=== PATIENT | male | born 1945 | race Caucasian/White ===

== ENCOUNTER → 2018-12-03 | Outpatient (CLI) | payer MEDICARE ==
[~2018-12-03] MED LIST: AMLODIPINE BESY10 MG PO; ASPIRIN325 M2 PO; ASPIRIN81 M1 PO; B COMPLEX1 EACH PO; BUPROPION HCL100 M2 PO; BUSPIRONE HCL10 MG PO; BUSPIRONE10 MG PO; DOCUSATE SOD100 MG PO; EFFEXOR XR37.5 MG PO; FINASTERIDE5 M1 PO; FISH OIL 1,0001 EAC2 PO; HYDROCODONE-AC1 EAC1 PO; LIPITOR20 MG PO; Lovenox40 MG/0.4 SC; OMEPRAZOLE20 M2 PO; TAMSULOSIN HCL0.4 MG PO; TRAZODONE100 MG PO; VITAMIN B-121000 MC2 PO; VITAMIN C1000 M5 PO; VITAMIN D31000 UNI1 PO
== END | disposition home or self-care (01) ==
LOC: ORTHO 01:16
DX: Z47.1 Aftercare following joint replacement surgery (principal)

== ENCOUNTER → 2019-01-31 | Outpatient (CLI) | payer MEDICARE | END | disposition home or self-care (01) | LOC: ORTHO 02:44 | DX: S72.141D Displaced intertrochanteric fracture of right femur, subsequent encounter for closed fracture with routine healing (principal); X58.XXXD Exposure to other specified factors, subsequent encounter ==

== ENCOUNTER 2022-01-19 14:10 | Emergency (ER) | payer OTHER ==
[~2022-01-19] VITALS: Wt 77.1 kg
[2022-01-19] MEDS ORDERED: TRAMADOL HCL50 MG PO (17:22)
== END 2022-01-19 17:35 | disposition home or self-care (01) ==
LOC: ED 14:10
DX: S22.41XA Multiple fractures of ribs, right side, initial encounter for closed fracture (principal); Z88.2 Allergy status to sulfonamides; Z88.8 Allergy status to other drugs, medicaments and biological substances; Z79.899 Other long term (current) drug therapy; Z79.82 Long term (current) use of aspirin; F17.200 Nicotine dependence, unspecified, uncomplicated; W18.39XA Other fall on same level, initial encounter; Y93.89 Activity, other specified; Y92.89 Other specified places as the place of occurrence of the external cause; Y99.8 Other external cause status

== ENCOUNTER 2024-10-21 11:37 | Emergency (ER) | payer OTHER ==
[~2024-10-21] VITALS: Ht 167.6 cm; Wt 68.0 kg
[~2024-10-21 11:37] MED LIST changes: +TRAMADOL HCL50 MG PO
[2024-10-21 11:58] LABS: BASO % 0.4 % (0.0-1.0); EOS # 0.1 10*3/uL (0.0-0.4); EOS % 1.9 % (1.0-4.0); HEMATOCRIT 42.3 % (42.0-52.0); MEAN CORPUSCULAR HGB 31.1 pg (27.0-31.0); MEAN CORPUSCULAR HGB CONC 33.1 g/dl (33.0-37.0); MEAN PLATELET VOLUME 8.2 fl (9.6-12.3); MONO # 0.6 10*3/uL (0.1-1.0); MONO % 8.6 % (3.0-9.0); NEUT # 4.2 10*3/uL (2.3-7.9); NEUT % 60.1 % (47.0-73.0); PLATELET COUNT AUTOMATED 249 10*3/uL (130-400); RED CELL DISTRI WIDTH 13.5 % (0-14.5)
[2024-10-21 12:17] LABS: BUN 12 mg/dl (9-23); CHLORIDE 105 mmol/L (98-107); POTASSIUM 4.1 mmol/L (3.4-5.1)
[2024-10-21] MEDS ORDERED: traZODone Hydrochloride 100 MG TAB PO ONE (23:10)
== END 2024-10-22 00:34 | disposition short-term general hospital (02) ==
LOC: ED 11:37
PROVIDERS: Nurse Practitioner Family
DX: M47.812 Spondylosis without myelopathy or radiculopathy, cervical region (principal); G95.19 Other vascular myelopathies; I10 Essential (primary) hypertension; F32.A Depression, unspecified; F17.200 Nicotine dependence, unspecified, uncomplicated; Z79.82 Long term (current) use of aspirin; Z79.899 Other long term (current) drug therapy; Z88.2 Allergy status to sulfonamides; Z88.5 Allergy status to narcotic agent; Z98.890 Other specified postprocedural states

== ENCOUNTER 2024-11-25 23:22 | Emergency (ER) | payer OTHER ==
[~2024-11-25] VITALS: Wt 72.6 kg
[2024-11-25 23:40] LABS: BASO # 0.0 10*3/uL (0.0-0.1); BASO % 0.4 % (0.0-1.0); EOS # 0.2 10*3/uL (0.0-0.4); EOS % 1.5 % (1.0-4.0); MEAN CELL VOLUME 93.2 fl (80.0-94.0); MEAN CORPUSCULAR HGB 30.1 pg (27.0-31.0); MEAN PLATELET VOLUME 8.2 fl (9.6-12.3); MONO # 0.8 10*3/uL (0.1-1.0); MONO % 7.7 % (3.0-9.0); NEUT # 7.6 10*3/uL (2.3-7.9); NEUT % 76.9 % (47.0-73.0); NUCLEATED RED BLOOD CELL 0.0 % (0.0-0.0); NUCLEATED RED BLOOD CELL 0.0 10*3/uL (0.0-0.0); PLATELET COUNT AUTOMATED 404 10*3/uL (130-400); RED CELL DISTRI WIDTH 14.0 % (0-14.5)
[2024-11-26 00:02] LABS: BUN 14 mg/dl (9-23)
== END 2024-11-26 01:47 | disposition home or self-care (01) ==
LOC: ED 23:22
PROVIDERS: Internal Medicine
DX: T38.3X1A Poisoning by insulin and oral hypoglycemic [antidiabetic] drugs, accidental (unintentional), initial encounter (principal); E11.9 Type 2 diabetes mellitus without complications; F17.200 Nicotine dependence, unspecified, uncomplicated; Z88.2 Allergy status to sulfonamides; Z88.5 Allergy status to narcotic agent; Z79.82 Long term (current) use of aspirin; Y92.098 Other place in other non-institutional residence as the place of occurrence of the external cause

== ENCOUNTER → 2025-01-01 | Outpatient (CLI) | payer OTHER ==
[~2025-01-01] MED LIST changes: +BARIUM SULFATE 98% 340 GM BOT PO ONE
== END ==
LOC: RAD/SH 00:12
PROVIDERS: ATTEND Internal Medicine
DX: R13.19 Other dysphagia (principal)